=== PATIENT | female | born 1930 | race Two or more races ===

== ENCOUNTER 2020-04-22 17:31 | Outpatient (CLI) | payer OTHER | END 2020-04-22 18:00 | disposition home or self-care (01) | LOC: OFIC 805 17:31 | PROVIDERS: ATTEND Otolaryngology | DX: C44.329 Squamous cell carcinoma of skin of other parts of face (principal) ==

== ENCOUNTER 2020-06-16 13:07 | Outpatient (CLI) | payer OTHER | END 2020-06-16 14:00 | disposition home or self-care (01) | LOC: OFIC 805 13:07 | PROVIDERS: ATTEND Otolaryngology | DX: C44.89 Other specified malignant neoplasm of overlapping sites of skin (principal) ==